=== PATIENT | female | born 1950 | race Caucasian/White ===

== ENCOUNTER 2017-05-09 14:27 | Emergency (ER) | payer MEDICARE, BC ==
[2017-05-09 14:48] VITALS: BP 153/98
[2017-05-09 15:05] LABS: RAPID STREP SCREEN REAGENT QC YELLOW (YELLOW)
--- NOTE | 2017-05-09 15:34 | XRAY Preliminary Report ---
Exam: XR Chest 2 View PA/LAT IMPRESSION: No acute disease. [facility] SITE ID: [id number]
--- NOTE | 2017-05-09 15:36 | XRAY Report ---
EXAM: CHEST RADIOGRAPHY EXAM DATE: 05/09/2017 03:28 PM. CLINICAL HISTORY: Cough. COMPARISON: None. TECHNIQUE: 2 views. FINDINGS: Lungs/Pleura: Clear. No effusion or pneumothorax. Mediastinum: Heart and mediastinal contours are unremarkable. Other: Osteopenia. Degenerative changes. IMPRESSION: No acute disease. [facility] Referring Provider Line: [phone] SITE ID: [id number]
[2017-05-09] MEDS ORDERED: DEXAMETHASONE 10 MG/ML VIAL PO STA (15:51)
--- NOTE | 2017-05-09 15:53 | ED Physician Documentation ---
PD HPI URI - Stated complaint Stated Complaint: SORE THROAT - Chief complaint Chief Complaint: General - History obtained from History obtained from: Patient - History of Present Illness Timing - onset: How many weeks ago (1) Timing duration: Weeks (1) Timing details: Gradual onset, Still present, Waxing and waning Associated symptoms: Fever, Ear pain, Nasal congestion, Rhinorrhea, Sore throat , Productive cough Contributing factors: Sick contact Improves by: Rest, Medication Similar symptoms before: Diagnosis (OM and sinusitis) Recently seen: Clinic (Seen at home in [place] 5 weeks ago for URI after visiting her grandchildren. Yesica helped then.) - Additional information Additional information: 66-year-old female is visiting [facility] from [place] and over the past week she has developed a sore throat lost her voice had some improvement and then 2 days ago had worsening again of sore throat coughing up yellow-green phlegm and pain into her right ear. Review of Systems Constitutional: reports: Fever, Chills, Fatigue Eyes: denies: Decreased vision Ears: reports: Ear pain Nose: reports: Rhinorrhea / runny nose, Congestion Throat: reports: Sore throat Cardiac: denies: Chest pain / pressure, Palpitations Respiratory: reports: Cough. denies: Dyspnea GI: denies: Nausea, Vomiting : denies: Dysuria PD PAST MEDICAL HISTORY - Present Medications Home Medications: Ambulatory Orders Medication Instructions Recorded Confirmed Azithromycin [Zithromax] 250 mg PO DAILY #6 tablet 05/09/17 - Allergies Allergies/Adverse Reactions: Allergies Allergy/AdvReac Type Severity Reaction Status Date / Time No Known Drug Allergies Allergy Verified 05/09/17 14:48 PD ED PE NORMAL - Vitals Vital signs reviewed: Yes (Hypertensive) - General General: No acute distress, Well developed/nourished - HEENT HEENT: Atraumatic, PERRL, EOMI, Other (The right TM is erythematous with rounding of land enciso the left TM is erythematous. The pharynx is with mild erythema and dry mucous membranes.) - Neck Neck: Supple, no meningeal sign, No bony TTP (The right TM is markedly inflamed with indistinct landmarks the left is with erythema.) - Cardiac Cardiac: RRR, No murmur - Respiratory Respiratory: No respiratory distress, Clear bilaterally - Abdomen Abdomen: Soft, Non tender - Derm Derm: Normal color, Warm and dry, No rash - Extremities Extremities: No deformity, No edema - Neuro Neuro: No motor deficit, No sensory deficit - Psych Psych: Normal mood, Normal affect Results - Vitals Vitals: Vital Signs - 24 hr 05/09/17 14:44 Temperature 36.9 C Heart Rate 74 Respiratory 18 Rate Blood Pressure 153/98 H O2 Saturation 98 Oxygen O2 Source Room air - Labs Labs: Laboratory Tests 05/09/17 14:50 Group A Strep Rapid Negative - Rads (name of study) 2 view chest Radiology: Prelim report reviewed, EMP read indepedently, See rad report PD MEDICAL DECISION MAKING - ED course Complexity details: reviewed results, re-evaluated patient, considered differential, d/w patient ED course: 66-year-old female with URI as a bimodal illness and she now has otitis media. She is administered dexamethasone 10 mg in the emergency department and we will put her on some azithromycin. She does have a history of immunosuppression secondary to medications she is using for rheumatoid arthritis. Departure - Departure Disposition: 01 Home, Self Care Clinical Impression: Otitis media Qualifiers: Otitis media type: suppurative Laterality: bilateral Chronicity: acute Recurrence: not specified as recurrent Spontaneous tympanic membrane rupture: without spontaneous rupture Qualified Code(s): H66.003 - Acute suppurative otitis media without spontaneous rupture of ear drum, bilateral Instructions: ED Otitis Media Acute Adult Follow-Up: Your, doctor [Other] Prescriptions: Azithromycin [Zithromax] 250 mg PO DAILY #6 tablet
[2017-05-09] MEDS ORDERED: DEXAMETHASONE 10 MG/ML VIAL ONE (15:57)
== END 2017-05-09 16:14 | disposition home or self-care (01) ==
LOC: ED 14:27
DX: H66.003 Acute suppurative otitis media without spontaneous rupture of ear drum, bilateral (principal)
CPT/HCPCS: 71020; 87070; 87430; 99283